=== PATIENT | male | born 1965 | race Caucasian/White ===

== ENCOUNTER 2018-12-07 10:05 | Emergency (ER) | payer SELFPAY ==
[~2018-12-07] VITALS: Ht 180.3 cm; Wt 81.6 kg
[2018-12-07] MEDS ORDERED: LOSARTAN (10:16)
[2018-12-07] MEDS ORDERED: ASPI-605 PO (10:16)
[2018-12-07] MEDS ORDERED: HYDROCHLOROTHIAZIDE (10:16)
[2018-12-07] MEDS ORDERED: CARV40CP PO (10:16)
[2018-12-07] MEDS ORDERED: LIPITOR (10:16)
--- NOTE | 2018-12-07 10:22 | NUR ---
Patient is resting comfortably on gurney while using his cellphone, calm , NAD.
[2018-12-07] MEDS ORDERED: IV NORMAL SALINE 1000 ML BAG IV ONE (10:45)
[2018-12-07 11:01] LABS: BASOPHILS # (AUTO) 0.1 K/uL (0.0-8.0); BASOPHILS % (AUTO) 0.6 % (0.0-2.0); EOSINOPHILS # (AUTO) 0.1 K/uL (0.0-0.7); EOSINOPHILS % (AUTO) 0.8 % (0.0-7.0); HEMATOCRIT 43.9 % (36.7-47.1); HEMOGLOBIN 15.2 g/dL (12.5-16.3); LYMPHOCYTES # (AUTO) 2.2 K/uL (20.0-40.0); LYMPHOCYTES % (AUTO) 26.1 % (20.5-51.5); MEAN CORPUSCULAR HEMOGLOBIN 34.6 uug (23.8-33.4); MEAN CORPUSCULAR HGB CONC 35 g/dL (32.5-36.3); MEAN CORPUSCULAR VOLUME 99.9 fL (73.0-96.2); MONOCYTES # (AUTO) 0.7 K/uL (2.0-10.0); MONOCYTES % (AUTO) 8.5 % (0.0-11.0); NEUTROPHILS # (AUTO) 5.4 K/uL (1.8-8.9); PLATELET COUNT (AUTO) 209 K/uL (152-348); RED BLOOD CELL COUNT(AUTO) 4.39 MIL/uL (4.06-5.63); WHITE BLOOD COUNT (AUTO) 8.4 K/uL (3.6-10.2)
[2018-12-07 11:08] LABS: CREATININE 1.1 mg/dL (0.6-1.3)
[2018-12-07 11:10] LABS: MAGNESIUM 1.9 mg/dL (1.8-2.4)
[2018-12-07 11:12] LABS: ACETAMINOPHEN < 2.0 ug/mL (10-30)
[2018-12-07 11:13] LABS: BILIRUBIN,DIRECT 0.1 mg/dL (0.0-0.2); BILIRUBIN,TOTAL 0.5 mg/dL (0.2-1.0); TOTAL PROTEIN, SERUM 7.7 g/dL (6.4-8.2)
[2018-12-07 11:16] LABS: ETHANOL 317 MG/DL (0-0)
[2018-12-07] MEDS ORDERED: POTASSIUM CHLORIDE 20 MEQ TAB.PRT.SR PO ONE (11:45)
[2018-12-07] MEDS ORDERED: POTASSIUM CHLORIDE 20 MEQ TAB.PRT.SR ONE (11:49)
--- NOTE | 2018-12-07 12:15 | NUR ---
"Can I go home now?" per patient's verbalization. MD notified. Patient's friend said that he is coming back at around one o'clock this afternoon.
[2018-12-07 12:20] LABS: *AMPHETAMINE, URINE NEGATIVE (NEGATIVE); *BARBITURATE, URINE NEGATIVE (NEGATIVE); *CANNABINOID, URINE NEGATIVE (NEGATIVE); *COCCAINE, URINE NEGATIVE (NEGATIVE); *OPIATE, URINE NEGATIVE (NEGATIVE); *PHENCYCLIDINE SCREEN,URINE NEGATIVE (NEGATIVE)
--- NOTE | 2018-12-07 12:35 | NUR ---
Patient discharged to home in stable conditon. Written and verbal after care instructions given. Patient verbalizes understanding of instructions. ALL BELONGINGS W/ PT. PT SELF-AMBULATED W/O DIFFICULTY. PT REPORTS HE WILL WALK HOME. 18G IV ACCESS REMOVED PRIOR TO D/C - INNER CANNULA INTACT.
[2018-12-07 12:36] VITALS: BP 135/81
[2018-12-09 11:11] LABS: *GC NAA Negative (Negative); *TRIC.VAG. NAA Negative (Negative)
== END 2018-12-07 12:37 | disposition home or self-care (01) ==
LOC: ER 10:05
DX: F10.129 Alcohol abuse with intoxication, unspecified (principal); E87.6 Hypokalemia; F32.9 Major depressive disorder, single episode, unspecified; Z79.82 Long term (current) use of aspirin; Z79.899 Other long term (current) drug therapy; Y90.8 Blood alcohol level of 240 mg/100 ml or more
CPT/HCPCS: 36415; 80048; 80076; 80307; 83690; 83735; 84484; 85025; 85610; 85730; 86592; 87491; 87806; 93005; 99284; G0480 ×2; G0481; 70030-TC; A4663; J7030